=== PATIENT | male | born 1970 | race Caucasian/White ===

== ENCOUNTER 2018-12-13 06:04 | Emergency (ER) | payer SELFPAY ==
[~2018-12-13] VITALS: Wt 80.2 kg
[2018-12-13 06:06] VITALS: BP 145/76; PULSE 64; RESP 18
[2018-12-13] MEDS ORDERED: IBUPROFEN 600 MG TAB PO ONE (07:00)
[2018-12-13] MEDS ORDERED: IBUP-1542 PO (07:48)
--- NOTE | 2018-12-13 07:48 | ERD ---
ER Documentation Chief Complaint Chief Complaint R KNEE PAIN X'S 4 MONTHS, PAIN INCREASING HPI 48yo M presents with complaint of Right knee pain x 4 months. Pt denies trauma or injury to the knee, but notes as of the past few days pain has increased to an 8/10 severity. Pt notes inconsistent use of Ibuprofen PRN pain, without improvement. 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 Denies any further associated symptoms. Denies any known relieving factors. ROS All systems reviewed and are negative except as per history of present illness. Medications Home Meds Active Scripts Ibuprofen* (Motrin*) 600 Mg Tab, 600 MG PO Q8 for pain/inflammation, #30 TAB Prov:KATIANA BURDEN PA-C 12/13/18 Allergies Allergies: Coded Allergies: No Known Allergy (Unverified , 12/13/18) PMhx/Soc Medical and Surgical Hx: pt denies Medical Hx, pt denies Surgical Hx Hx Alcohol Use: No Hx Substance Use: No Hx Tobacco Use: No Smoking Status: Never smoker FmHx Family History: No diabetes, No coronary disease, No other Physical Exam Vitals Vital Signs Date Temp Pulse Resp B/P (MAP) Pulse Ox O2 O2 Flow FiO2 Time Delivery Rate 12/13/18 97.8 64 18 145/76 97 06:06 (99) Physical Exam GENERAL: Alert and coherent. Well appearing, non-toxic. No acute distress. HEAD: Normocephalic, atraumatic. EYES: EOMI. PERRL. No conjunctival injection. No scleral icterus. No Discharge ENT: Nasal passages patent. Moist mucous membranes. No erythema or tonsillar exudates. NECK: Supple. Full range of motion. Trachea midline. No lymphadenopathy. LUNGS: No tachypnea. Clear to auscultation bilaterally. No wheezing, rales or rhonchi. No accessory muscle use. CV: Regular rate and rhythm. No murmurs, rubs, or gallops. BACK: Full ROM. No CVA tenderness. EXTREMITIES: No deformity, erythema, ecchymosis or swelling. Skin intact. Full ROM of the Right knee. No crepitus. Non-tender to palpation of the tibial plateau.TTP along the right lateral patella. (-) Anterior drawer test. (-) Oscar test. No valgus/varus instability. Sensation intact to light touch. Neurovascularly intact. (Able to plantarflex, dorsiflex, cruz foot, invert foot, raise big toe.) 2+ DP and DT pulses. Compartments soft. SKIN: Warm and dry. No obvious rashes, erythema, or petechiae. NEUROLOGIC: Alert and oriented x3. Appropriate speech, mood and affect. Face is symmetric. Speech is normal. CN II-XII intact. Moves all extremities equally. Ambulates with a strong, steady gait. Results 24 hrs Current Medications Medications Dose Sig/William Start Time Status Last (Trade) Ordered Route PRN Stop Time Admin Dose Reason Admin Ibuprofen 600 mg ONCE ONCE 12/13/18 DC 12/13/18 (Motrin) PO 07:00 12/13/18 07:10 07:01 Procedures/MDM PROCEDURE: XR right knee CLINICAL INDICATION: Pain TECHNIQUE: AP, lateral and oblique views of the right knee were obtained. COMPARISON: None FINDINGS: There is no evidence of an acute fracture. A well corticated calcification is identified at the proximal tip of the fibula. Joint spaces and alignment are maintained. There is hazy density in the suprapatellar soft tissues suspicious for a joint effusion. Soft tissues are otherwise unremarkable. IMPRESSION: Probable suprapatellar joint effusion. No evidence for fracture or dislocation. MDM: Patient presented to the Emergency Department with complaints of knee pain and history requiring further work up and xray. The patient had mild pain and no swelling of the knee on physical examination. Xray was negative for acute fracture, positive for joint effusion. Due to abnormalities noted on physical exam, the patient requires re-evaluation, monitoring, and medical therapy. The patients condition improved during their stay after the administration of medications, knee immobilizer and serial evaluations, they were noted to be neurovascular intact at discharge. Patient reports no new complaints and agrees with plan for further observation and care. Pt stable for discharge with outpatient management at this time. Pt started on Ibuprofen 600mg for inflammation and pain relief, as well as advised to wear knee immobilizer placed while in ED and counseled regarding use of crutches. Pt advised to f/u with PCP if pain persists as MRI May be necessary to r/o ligament or tendon injury. Pt expressed verbal understanding and agreement to treatment plan. All questions addressed and answered. Departure Diagnosis: Primary Impression: Joint effusion Additional Impression: Knee pain Condition: Stable Patient Instructions: Knee Pain, Uncertain Cause, Knee Effusion Referrals: [facility] YOU HAVE RECEIVED A MEDICAL SCREENING EXAM AND THE RESULTS INDICATE THAT YOU DO NOT HAVE A CONDITION THAT REQUIRES URGENT TREATMENT IN THE EMERGENCY DEPARTMENT. FURTHER EVALUATION AND TREATMENT OF YOUR CONDITION CAN WAIT UNTIL YOU ARE SEEN IN YOUR DOCTORS OFFICE WITHIN THE NEXT 1-2 DAYS. IT IS YOUR RESPONSIBILITY TO MAKE AN APPOINTMENT FOR FOLOW-UP CARE. IF YOU HAVE A PRIMARY DOCTOR --you should call your primary doctor and schedule an appointment IF YOU DO NOT HAVE A PRIMARY DOCTOR YOU CAN CALL OUR PHYSICIAN REFERRAL HOTLINE AT IF YOU CAN NOT AFFORD TO SEE A PHYSICIAN YOU CAN CHOSE FROM THE FOLLOWING [facility] [address] [facility] [address] [facility] [address] [facility] [address] [facility] [address]. [facility] [address] [facility] Urgent Care 7 a.m.- 11 p.m. Every Day of the Week NO APPOINTMENT OR AUTHORIZATION NEEDED KATIANA BURDEN PA-C December 13, 2018 07:48
== END 2018-12-13 08:01 | disposition home or self-care (01) ==
LOC: FTE 06:04
DX: M25.461 Effusion, right knee (principal)
CPT/HCPCS: 73562